=== PATIENT | male | born 1975 | race African-American/Black ===

== ENCOUNTER 2018-05-24 13:24 | Emergency (ER) | payer OTHER ==
[~2018-05-24] VITALS: Ht 167.6 cm; Wt 74.0 kg
[2018-05-24 15:10] VITALS: BP 140/76
== END 2018-05-24 15:12 | disposition home or self-care (01) ==
LOC: EDBD 13:24 → ER 13:24
DX: S00.81XA Abrasion of other part of head, initial encounter (principal); Y35.93XA Legal intervention, means unspecified, suspect injured, initial encounter; Y93.89 Activity, other specified; Y92.89 Other specified places as the place of occurrence of the external cause; R03.0 Elevated blood-pressure reading, without diagnosis of hypertension
CPT/HCPCS: 99283